=== PATIENT | male | born 1945 | race African-American/Black ===

== ENCOUNTER 2018-01-16 10:03 | Outpatient (CLI) | payer OTHER ==
[~2018-01-16 10:03] MED LIST: ACTOS30 MG PO; ALDACTONE25 MG; AMBIEN10 MG; AVALIDE 150-12.1 TA1 PO; AVAPRO150 MG PO; CARTIA XT180 MG; CARVEDILOL12.5 MG; CIPRO500 MG PO; LOSARTAN POTASS25 MG; LOSARTAN-HCTZ1 EAC1; MAGNESIUM500 MG; MULTIVITAMINA; PHENAZOPYRIDIN200 MG PO; XARELTO20 MG
== END 2018-01-16 10:05 | disposition home or self-care (01) ==
LOC: RAD 10:03
DX: J45.998 Other asthma (principal)

== ENCOUNTER 2018-02-07 07:52 | Outpatient (CLI) | payer OTHER | END 2018-02-07 08:02 | disposition home or self-care (01) | LOC: SONOGRAMA 07:52 → MAMO-SONO 08:15 | DX: R16.0 Hepatomegaly, not elsewhere classified (principal) ==

== ENCOUNTER → 2018-03-11 | Outpatient (CLI) | payer OTHER | END | disposition home or self-care (01) | LOC: NUCLEAR 09:45 | DX: K76.1 Chronic passive congestion of liver (principal) | CPT/HCPCS: 78215; A9541 ==

== ENCOUNTER 2018-04-05 09:07 | Emergency (ER) | payer OTHER ==
[~2018-04-05] VITALS: Ht 182.9 cm; Wt 99.8 kg
[2018-04-05] MEDS ORDERED: LIPITOR40 MG (09:34)
[2018-04-05] MEDS ORDERED: HUMULIN 70100 UNIT/2 (09:34)
[2018-04-05] MEDS ORDERED: DIGOXIN0.125 MG/2 (09:35)
[2018-04-05] MEDS ORDERED: LASIX40 MG (09:35)
[2018-04-05] MEDS ORDERED: CARVEDILOL25 MG (09:35)
[2018-04-05] MEDS ORDERED: COUMADIN6 MG (09:35)
[2018-04-05] MEDS ORDERED: TRADJENTA5 MG (09:35)
[2018-04-05] MEDS ORDERED: LOSARTAN POTASS50 MG (09:36)
[2018-04-05] MEDS ORDERED: ATORVASTATIN CA40 MG (09:36)
== END 2018-04-05 14:22 | disposition home or self-care (01) ==
LOC: ER 09:07
DX: J22 Unspecified acute lower respiratory infection (principal)

== ENCOUNTER 2018-08-31 12:58 | Emergency (ER) | payer OTHER ==
[~2018-08-31] VITALS: Ht 182.9 cm; Wt 97.5 kg
[~2018-08-31 12:58] MED LIST changes: +ATORVASTATIN CA40 MG; +CARVEDILOL25 MG; +COUMADIN6 MG; +DIGOXIN0.125 MG/2; +HUMULIN 70100 UNIT/2; +LASIX40 MG; +LIPITOR40 MG; +LOSARTAN POTASS50 MG; +TRADJENTA5 MG
== END 2018-08-31 14:52 | disposition home or self-care (01) ==
LOC: ER 12:58
DX: K58.8 Other irritable bowel syndrome (principal); N20.0 Calculus of kidney; R10.12 Left upper quadrant pain

== ENCOUNTER 2018-09-02 17:59 | Emergency (ER) | payer OTHER ==
[~2018-09-02] VITALS: Ht 182.9 cm; Wt 99.8 kg
== END 2018-09-02 22:16 | disposition home or self-care (01) ==
LOC: ER 17:59
DX: R10.32 Left lower quadrant pain (principal)

== ENCOUNTER 2018-09-11 07:44 | Outpatient (CLI) | payer OTHER | END 2018-09-11 07:52 | disposition home or self-care (01) | LOC: RAD 07:44 | DX: R10.12 Left upper quadrant pain (principal); R22.2 Localized swelling, mass and lump, trunk ==

== ENCOUNTER 2018-12-04 08:18 | Emergency (ER) | payer OTHER ==
[~2018-12-04] VITALS: Ht 182.9 cm; Wt 99.8 kg
[2018-12-04] MEDS ORDERED: AMIODARONE HCL200 MG (08:24)
[2018-12-04] MEDS ORDERED: ELIQUIS5 MG (08:25)
[2018-12-04] MEDS ORDERED: PROMETH-CODEIN 65 ML PO (13:12)
== END 2018-12-04 13:25 | disposition home or self-care (01) ==
LOC: ER 08:18
DX: J40 Bronchitis, not specified as acute or chronic (principal)

== ENCOUNTER 2019-01-08 17:34 | Emergency (ER) | payer OTHER ==
[~2019-01-08] VITALS: Ht 190.5 cm; Wt 99.8 kg
[~2019-01-08 17:34] MED LIST changes: +AMIODARONE HCL200 MG; +ELIQUIS5 MG; +PROMETH-CODEIN 65 ML PO
== END 2019-01-08 20:41 | disposition home or self-care (01) ==
LOC: ER 17:34
DX: M54.2 Cervicalgia (principal); M62.838 Other muscle spasm

== ENCOUNTER 2019-04-06 09:18 | Outpatient (CLI) | payer OTHER | END 2019-04-06 09:21 | disposition home or self-care (01) | LOC: NUCLEAR 09:18 | DX: I50.20 Unspecified systolic (congestive) heart failure (principal); K71.0 Toxic liver disease with cholestasis | CPT/HCPCS: 78215; A9541 ==

== ENCOUNTER 2019-05-19 07:58 | Emergency (ER) | payer OTHER ==
[~2019-05-19] VITALS: Ht 182.9 cm; Wt 99.8 kg
[2019-05-19] MEDS ORDERED: DIOVAN40 MG PO (08:22)
[2019-05-19] MEDS ORDERED: [UNRECOGNIZED DRUG - OTHER] PO (08:23)
== END 2019-05-19 10:28 | disposition home or self-care (01) ==
LOC: ER 07:58
DX: M25.551 Pain in right hip (principal)

== ENCOUNTER 2019-05-25 09:14 | Inpatient (IN) | payer OTHER ==
[~2019-05-25] VITALS: Ht 177.8 cm; Wt 102.1 kg
[~2019-05-25 09:14] MED LIST changes: +DIOVAN40 MG PO; +[UNRECOGNIZED DRUG - OTHER] PO
== END 2019-05-28 16:23 | disposition home or self-care (01) | DRG 291 ==
LOC: ER 09:14 → ICU-2 18:17 → MEDJ 05-26 18:17
PROVIDERS: ADMIT Specialist
PROC: BW28ZZZ Computerized Tomography (CT Scan) of Head (ICD-10-PCS; principal; 2019-05-25)
PROC: B246ZZZ Ultrasonography of Right and Left Heart (ICD-10-PCS; 2019-05-25)
PROC: 4A033R1 Measurement of Arterial Saturation, Peripheral, Percutaneous Approach (ICD-10-PCS; 2019-05-25)
PROC: 4A12X4Z Monitoring of Cardiac Electrical Activity, External Approach (ICD-10-PCS; 2019-05-26)
DX: I11.0 Hypertensive heart disease with heart failure (principal); I50.21 Acute systolic (congestive) heart failure; I48.0 Paroxysmal atrial fibrillation; E11.22 Type 2 diabetes mellitus with diabetic chronic kidney disease; E11.65 Type 2 diabetes mellitus with hyperglycemia; I13.0 Hypertensive heart and chronic kidney disease with heart failure and stage 1 through stage 4 chronic kidney disease, or unspecified chronic kidney disease; I08.3 Combined rheumatic disorders of mitral, aortic and tricuspid valves; N18.3 Chronic kidney disease, stage 3 (moderate); Z79.4 Long term (current) use of insulin; Z79.01 Long term (current) use of anticoagulants; Z95.810 Presence of automatic (implantable) cardiac defibrillator; Z86.73 Personal history of transient ischemic attack (TIA), and cerebral infarction without residual deficits

== ENCOUNTER 2019-06-07 11:34 | Emergency (ER) | payer OTHER ==
[~2019-06-07] VITALS: Ht 182.9 cm; Wt 99.8 kg
== END 2019-06-07 15:10 | disposition home or self-care (01) ==
LOC: ER 11:34
DX: J06.9 Acute upper respiratory infection, unspecified (principal); B96.0 Mycoplasma pneumoniae [M. pneumoniae] as the cause of diseases classified elsewhere

== ENCOUNTER 2019-08-23 09:50 | Inpatient (IN) | payer OTHER ==
[~2019-08-23] VITALS: Ht 182.9 cm; Wt 102.1 kg
--- NOTE | 2019-08-23 10:28 | NUR ---
PTE REFIERE DEBILIDAD Y DIFICULTAD PARA RESPIRAR SE SUZANNA S/V YSE REALIZA EKG SE UBICA PATENTE EN AREA DE OBSERVACION
--- NOTE | 2019-08-23 16:00 | NUR ---
SE RECIBE AL PACIENTE EN UNIDAD DE CRITICO Y SE UBICA EN CUBICULO #2. PACIENTE ALERTA Y ORIENTADO EN RACHID PEDRO ESFERAS. SE CONECTA AL MONITOR CARDIACO Y SATUROMETRO DE PULSO CONTINUO.
--- NOTE | 2019-08-23 16:30 | NUR ---
PACIENTE RECIBE CISITA DEL DR. SCOT AMBRIZ. AL IGUAL QUE PACIENTE AL PACIENTE SE LE REALIZA UN EHO SPECTRUM.
== END 2019-08-27 13:48 | disposition home or self-care (01) | DRG 309 ==
LOC: ER 09:50 → MEDJ 18:41
PROVIDERS: ADMIT Specialist
PROC: B246ZZZ Ultrasonography of Right and Left Heart (ICD-10-PCS; principal; 2019-08-23)
PROC: 4A12X4Z Monitoring of Cardiac Electrical Activity, External Approach (ICD-10-PCS; 2019-08-23)
DX: I48.0 Paroxysmal atrial fibrillation (principal); I50.22 Chronic systolic (congestive) heart failure; I13.0 Hypertensive heart and chronic kidney disease with heart failure and stage 1 through stage 4 chronic kidney disease, or unspecified chronic kidney disease; N17.8 Other acute kidney failure; J44.1 Chronic obstructive pulmonary disease with (acute) exacerbation; J45.41 Moderate persistent asthma with (acute) exacerbation; E11.22 Type 2 diabetes mellitus with diabetic chronic kidney disease; E11.21 Type 2 diabetes mellitus with diabetic nephropathy; I08.3 Combined rheumatic disorders of mitral, aortic and tricuspid valves; I11.0 Hypertensive heart disease with heart failure; N18.3 Chronic kidney disease, stage 3 (moderate); E66.09 Other obesity due to excess calories; Z79.01 Long term (current) use of anticoagulants; Z79.4 Long term (current) use of insulin; Z95.810 Presence of automatic (implantable) cardiac defibrillator; Z68.30 Body mass index [BMI] 30.0-30.9, adult

== ENCOUNTER 2020-05-22 05:37 | Inpatient (IN) | payer OTHER ==
[~2020-05-22] VITALS: Wt 6.0 kg
== END 2020-05-31 18:05 | DRG 291 ==
LOC: ER 05:37 → MEDI 15:26
PROVIDERS: ADMIT Specialist; ATTEND Specialist
PROC: B246ZZZ Ultrasonography of Right and Left Heart (ICD-10-PCS; principal; 2020-05-22)
PROC: 4A033R1 Measurement of Arterial Saturation, Peripheral, Percutaneous Approach (ICD-10-PCS; 2020-05-22)
PROC: 4A12X4Z Monitoring of Cardiac Electrical Activity, External Approach (ICD-10-PCS; 2020-05-22)
PROC: 3E0F7GC Introduction of Other Therapeutic Substance into Respiratory Tract, Via Natural or Artificial Opening (ICD-10-PCS; 2020-05-23)
DX: I13.0 Hypertensive heart and chronic kidney disease with heart failure and stage 1 through stage 4 chronic kidney disease, or unspecified chronic kidney disease (principal); I50.41 Acute combined systolic (congestive) and diastolic (congestive) heart failure; I24.9 Acute ischemic heart disease, unspecified; I42.8 Other cardiomyopathies; I12.9 Hypertensive chronic kidney disease with stage 1 through stage 4 chronic kidney disease, or unspecified chronic kidney disease; I35.0 Nonrheumatic aortic (valve) stenosis; I48.91 Unspecified atrial fibrillation; I27.29 Other secondary pulmonary hypertension; E11.21 Type 2 diabetes mellitus with diabetic nephropathy; E66.8 Other obesity; E11.22 Type 2 diabetes mellitus with diabetic chronic kidney disease; N18.1 Chronic kidney disease, stage 1; Z95.5 Presence of coronary angioplasty implant and graft; Z86.73 Personal history of transient ischemic attack (TIA), and cerebral infarction without residual deficits; Z95.810 Presence of automatic (implantable) cardiac defibrillator; Z79.01 Long term (current) use of anticoagulants; Z79.4 Long term (current) use of insulin; Z20.828 Contact with and (suspected) exposure to other viral communicable diseases

== ENCOUNTER 2020-06-18 10:06 | Emergency (ER) | payer OTHER ==
[~2020-06-18] VITALS: Ht 182.9 cm; Wt 111.1 kg
[2020-06-18] MEDS ORDERED: BIDIL TABLET1 EACH (10:23)
[2020-06-18] MEDS ORDERED: ENTRESTO 24 MG1 EACH (10:23)
[2020-06-18] MEDS ORDERED: BTREX (10:24)
[2020-06-18] MEDS ORDERED: LIPITOR40 M1 (10:25)
[2020-06-18] MEDS ORDERED: BUMETANIDE1 MG (10:25)
== END 2020-06-18 14:11 | disposition home or self-care (01) ==
LOC: ER 10:06
DX: S61.422A Laceration with foreign body of left hand, initial encounter (principal); W01.118A Fall on same level from slipping, tripping and stumbling with subsequent striking against other sharp object, initial encounter; Y93.89 Activity, other specified; Y92.012 Bathroom of single-family (private) house as the place of occurrence of the external cause; Y99.8 Other external cause status

== ENCOUNTER → 2021-04-12 09:34 | Outpatient (CLI) | payer OTHER ==
[~2021-04-12 09:34] MED LIST changes: +BIDIL TABLET1 EACH; +BTREX; +BUMETANIDE1 MG; +ENTRESTO 24 MG1 EACH; +LIPITOR40 M1
== END | disposition home or self-care (01) ==
LOC: NUCLEAR 09:00
PROVIDERS: ATTEND Specialist
DX: K74.3 Primary biliary cirrhosis (principal); K74.69 Other cirrhosis of liver
CPT/HCPCS: 78215; A9541

== ENCOUNTER 2022-03-11 09:12 | Inpatient (IN) | payer OTHER ==
[~2022-03-11] VITALS: Ht 182.9 cm; Wt 99.8 kg
[2022-03-11] MEDS ORDERED: AMIODARONE HCL100 MG (09:24)
[2022-03-11] MEDS ORDERED: ENTRESTO 24 MG1 EACH PO (09:24)
[2022-03-11] MEDS ORDERED: JARDIANCE10 MG (09:24)
[2022-03-11] MEDS ORDERED: ALDACTONE25 MG PO (09:25)
[2022-03-11] MEDS ORDERED: ZOLPIDEM TART1.75 MG (09:26)
--- NOTE | 2022-03-11 09:37 | NUR ---
SE RECIBE PTE ALERTA Y ORIENTADO X3,REFIERE TENR DOLOR EN EL CUERPO ,REFIERE TENER UN DEBRIBILADOR ,TIENE DOLOREN CHERRY AREA SE LE SUZANNA S/V SE REALIZA EKG SE LE PRESNTA AL ,ES PTE DEL DR.MARCUS MACKENZIE.
--- NOTE | 2022-03-11 10:08 | NUR ---
PTE EVALUADO POR EL DR WOMACK QUIEN ORDENA EL [place]. MS S MARY ORIENTA SOBRE EL TX ORDENADO, LO CUAL REFIERE ENTENDER Y REALIZA PRUEBAS DE LABORATORIO MAT ORDEN MEDICA Y SIGUIENDO MEDIDAS ASEPTICAS.
--- NOTE | 2022-03-11 15:31 | NUR ---
SE RECIBE A PACIENTE ALERTA Y ORIENTADO X3 EN SHARLENE CON BARANDAS ELEVADAS POR SEGURIDAD. PACIENTE EN ESPERA DE RESULTADOS DE LAB. PARA RE- EVALUACION Y EN ESPERA DE CONSULTA CON DR. QUIROZ Y DRA. PEARCE. SE MANTIENE EN OBSERVACION.
--- NOTE | 2022-03-11 16:18 | NUR ---
POR ORDEN VERBAL DEL DR. FISHEROSTA SE COMIENZA A PACIENTE DRIP DE TRIDIL 50MG/ 250ML BAJANDO A 2ML/HR. SE COLOCA MONITOR CARDIACO Y OXIMETRIA DE PULSO. SE EDUCA A PACIENTE SOBRE TRATAMIENTO MEDICO Y SE MANTIENE EN OBSERVACION POR CAMBIOS SIGNIFICATIVOS.
--- NOTE | 2022-03-11 19:37 | NUR ---
PTE CON TRIDIL 50MG/250ML @1ML/HR, PRESENTA BP EN 90/58MMHG. SE NOTIFICA A , SABI MISMA REFIERE MANTENER TRIDIL EN HOLD.
[2022-03-12] MEDS ORDERED: ZOLPIDEM TARTRA10 MG (10:31)
[2022-03-12] MEDS ORDERED: VITAMIN D31250 MCG (10:32)
== END 2022-03-15 14:24 | disposition home or self-care (01) | DRG 291 ==
LOC: ER 09:12 → MEDJ 22:09 → SURH 22:09 → SEC-K 03-12 01:31 → SURH 03-12 01:46
PROVIDERS: ADMIT Specialist; ATTEND Specialist
PROC: B24BZZZ Ultrasonography of Heart with Aorta (ICD-10-PCS; principal; 2022-03-11)
PROC: 4A12X4Z Monitoring of Cardiac Electrical Activity, External Approach (ICD-10-PCS; 2022-03-12)
DX: I13.0 Hypertensive heart and chronic kidney disease with heart failure and stage 1 through stage 4 chronic kidney disease, or unspecified chronic kidney disease (principal); I50.23 Acute on chronic systolic (congestive) heart failure; A48.0 Gas gangrene; I24.9 Acute ischemic heart disease, unspecified; N17.8 Other acute kidney failure; N18.30 Chronic kidney disease, stage 3 unspecified; E87.5 Hyperkalemia; D69.6 Thrombocytopenia, unspecified; D75.1 Secondary polycythemia; I48.91 Unspecified atrial fibrillation; I25.10 Atherosclerotic heart disease of native coronary artery without angina pectoris; E11.22 Type 2 diabetes mellitus with diabetic chronic kidney disease; Z79.4 Long term (current) use of insulin; J44.9 Chronic obstructive pulmonary disease, unspecified; Z95.810 Presence of automatic (implantable) cardiac defibrillator; Z86.73 Personal history of transient ischemic attack (TIA), and cerebral infarction without residual deficits; Z95.5 Presence of coronary angioplasty implant and graft

== ENCOUNTER 2022-08-10 07:05 | Outpatient (CLI) | payer OTHER ==
[~2022-08-10 07:05] MED LIST changes: +ALDACTONE25 MG PO; +AMBIEN10 MG PO; +AMIODARONE HCL100 MG; +CARVEDILOL6.25 MG; +D3 + K2 DOTS 11 EACH PO; +ELIQUIS5 MG PO; +ENTRESTO 24 MG1 EACH PO; +JARDIANCE10 MG; +JARDIANCE10 MG PO; +LASIX20 MG PO; +PLAVIX75 MG PO; +VITAMIN D31250 MCG; +ZOLPIDEM TART1.75 MG; +ZOLPIDEM TARTRA10 MG
== END 2022-08-10 07:06 | disposition home or self-care (01) ==
LOC: NUCLEAR 07:05
PROVIDERS: ATTEND Internal Medicine Hematology & Oncology
DX: D45 Polycythemia vera (principal); D70.8 Other neutropenia; D73.1 Hypersplenism; K76.9 Liver disease, unspecified
CPT/HCPCS: 78215; A9541

== ENCOUNTER 2022-10-02 22:03 | Inpatient (IN) | payer OTHER ==
[~2022-10-02] VITALS: Ht 182.9 cm; Wt 104.3 kg
[2022-10-03] MEDS ORDERED: SPIRONOLACTONE25 MG (11:34)
[2022-10-03] MEDS ORDERED: MEXILETINE HCL200 MG (11:34)
[2022-10-03] MEDS ORDERED: HUMULIN N100 UNIT/2 (11:34)
[2022-10-03] MEDS ORDERED: ATORVASTATIN CA40 MG (11:35)
[2022-10-03] MEDS ORDERED: TRADJENTA5 MG (11:35)
[2022-10-03] MEDS ORDERED: COLCHICINE0.6 MG (11:35)
[2022-10-03] MEDS ORDERED: VITAMIN D31250 MCG (11:35)
== END 2022-10-04 17:21 | disposition home or self-care (01) | DRG 921 ==
LOC: ER 22:03 → SEC-K 10-03 11:30 → MEDJ 10-03 11:30
PROVIDERS: ADMIT Internal Medicine Hematology & Oncology; ATTEND Internal Medicine Hematology & Oncology
PROC: 30233R1 Transfusion of Nonautologous Platelets into Peripheral Vein, Percutaneous Approach (ICD-10-PCS; principal; 2022-10-03)
DX: M96.830 Postprocedural hemorrhage of a musculoskeletal structure following a musculoskeletal system procedure (principal); D75.1 Secondary polycythemia; Z20.822 Contact with and (suspected) exposure to COVID-19